=== PATIENT | male | born 1980 | race Caucasian/White ===

== ENCOUNTER → 2021-11-03 | Outpatient (CLI) | payer BC ==
[2021-11-03 14:16] LABS: HEMOGLOBIN 15.5 gm/dl (14.0-17.5); RED BLOOD COUNT 4.94 M/UL (4.20-5.50); WHITE BLOOD COUNT 5.8 K/UL (4.5-11.0)
[2021-11-03 14:23] LABS: BUN/CREATININE RATIO 22 (0-10)
== END ==
LOC: LAB 13:39
PROVIDERS: Family Medicine
DX: M79.671 Pain in right foot (principal); M79.672 Pain in left foot; F32.A Depression, unspecified; E55.9 Vitamin D deficiency, unspecified; M54.6 Pain in thoracic spine
CPT/HCPCS: 36415; 80053; 80061; 83735; 85027